=== PATIENT | male | born 1980 | race Caucasian/White ===

== ENCOUNTER 2019-09-12 05:50 | Emergency (ER) | payer SELFPAY ==
[~2019-09-12] VITALS: Ht 182.9 cm; Wt 67.6 kg
--- NOTE | 2019-09-12 06:03 | NUR ---
PT AAOX4. BIBRA 37 REPORTING "PT WALKED IN TO [employer] [facility]OB[facility] AND REPORTED A SEIZURE" PT C/P BEING LIGHT HEADED UPON ASSESSMENT. VSS. NO ACUTE DISTRESS NOTED. PLACED IN GOWN, MONITOR, AND PULSE OX. WILL CONTINUE TO MONITOR.
--- NOTE | 2019-09-12 06:19 | NUR ---
CARROT TIER AT BEDSIDE.
[2019-09-12] MEDS ORDERED: IV NS 0.9% 1,000 ML BAG IV ONE (06:30)
[2019-09-12 06:31] LABS: BASOPHILS % (AUTO) 0.2 % (0.0-2.0); HEMATOCRIT 46 % (39-51); HEMOGLOBIN 15.6 g/dL (13.5-17.5); LYMPHOCYTES # (AUTO) 1.6 /CMM (0.8-4.8); MEAN CORPUSCULAR HGB CONC 34 g/dl (31.0-36.0); MEAN CORPUSCULAR VOLUME 81 fL (80-96); MONOCYTES # (AUTO) 0.5 /CMM (0.1-1.30); MONOCYTES % (AUTO) 6.3 % (2.0-12.0); NEUTROPHILS # (AUTO) 6.3 /CMM (1.8-8.9); NEUTROPHILS % (AUTO) 74.5 % (43.0-81.0); PLATELET COUNT (AUTO) 255 /CMM (150-450); RED BLOOD CELL COUNT(AUTO) 5.67 MIL/uL (4.5-6.0); WHITE BLOOD COUNT (AUTO) 8.5 K/uL (4.3-11.0)
--- NOTE | 2019-09-12 06:40 | NUR ---
BROUGHT TO CT
[2019-09-12 06:46] LABS: CALCIUM, SERUM 9.8 mg/dL (8.5-10.1); CARBON DIOXIDE 26 mmol/L (21-32); CHLORIDE 104 mmol/L (98-107); GLUCOSE 112 mg/dL (74-106); SODIUM SERUM 141 mmol/L (136-145); UREA NITROGEN, BLOOD 12 mg/dL (7-18)
[2019-09-12 06:52] LABS: ALANINE AMINOTRANSFERASE 34 U/L (12-78); ALBUMIN 4.3 g/dL (3.4-5.0); ALCOHOL, BLOOD < 3 mg/dL (0-0); ALKALINE PHOSPHATASE 79 U/L (46-116); ASPARTATE AMINOTRANSFERASE 21 U/L (15-37); BILIRUBIN,DIRECT 0.3 mg/dL (0.0-0.2); BILIRUBIN,TOTAL 1.4 mg/dL (0.2-1.0); TOTAL PROTEIN, SERUM 7.9 g/dL (6.4-8.2)
--- NOTE | 2019-09-12 07:13 | NUR ---
Patient is resting comfortably in bed with eyes closed. Easily aroused. VSS.
--- NOTE | 2019-09-12 07:19 | NUR ---
ASSESSED PT ON BED ASLEEP EASILY AROUSABLE, AAOX4, NOT IN RESPIRATORY DISTRESS DISTRESS, V/S STABLE, KEPT RESTED AND COMFORTABLE. WILL CONTINUE TO MONITOR.
--- NOTE | 2019-09-12 07:48 | NUR ---
STILL UNABLE TO PROVIDED URINE SPECIMEN.
--- NOTE | 2019-09-12 08:44 | NUR ---
PT IS NOT HOMELESS LIVES WITH GF IN [facility].
--- NOTE | 2019-09-12 08:44 | NUR ---
IV removed. Catheter intact and site benign. Pressure and 4x4 applied to site. No bleeding noted. Patient discharged to home in stable condition. Written and verbal after care instructions given. Patient verbalizes understanding of instruction.
[2019-09-12 08:45] VITALS: BP 126/71
== END 2019-09-12 08:46 | disposition home or self-care (01) ==
LOC: ER 05:51
DX: G40.909 Epilepsy, unspecified, not intractable, without status epilepticus (principal); Z90.89 Acquired absence of other organs; Z88.8 Allergy status to other drugs, medicaments and biological substances; Z59.0 Homelessness
CPT/HCPCS: 36415; 70450; 71045; 80048; 80076; 80307; 85025; 93005; 99285; J7030; G0480

== ENCOUNTER 2024-04-16 23:01 | Emergency (ER) | payer SELFPAY ==
[~2024-04-16] VITALS: Ht 182.9 cm; Wt 72.6 kg
[2024-04-16 23:01] VITALS: BP 122/77; TEMP 98.2
[2024-04-17] MEDS ORDERED: SULF1TAB48 PO (00:32)
[2024-04-17] MEDS ORDERED: CEPH500T PO (00:32)
[2024-04-17] MEDS ORDERED: IBUP-1957 PO (00:32)
[2024-04-17] MEDS ORDERED: IBUPROFEN 400 MG TABLET ONE (00:35)
[2024-04-17] MEDS ORDERED: CEPHALEXIN MONOHYDRATE 500 MG CAPSULE PO ONE (00:35)
[2024-04-17] MEDS ORDERED: SULFAMETH/TRIMETH 800/160 MG 1 UDTAB TABLET ONE (00:35)
[2024-04-17 00:43] VITALS: O2SAT 98
[2024-04-17] MEDS: CEPHALEXIN MONOHYDRATE 500 MG CAPSULE PO ONE (00:43)
[2024-04-17] MEDS: SULFAMETH/TRIMETH 800/160 MG 1 UDTAB TABLET PO ONE (00:43)
[2024-04-17] MEDS: IBUPROFEN 400 MG TABLET PO ONE (00:43)
== END 2024-04-17 00:44 | disposition home or self-care (01) ==
LOC: ER 23:03
DX: L03.114 Cellulitis of left upper limb (principal); F17.210 Nicotine dependence, cigarettes, uncomplicated; Z90.49 Acquired absence of other specified parts of digestive tract